=== PATIENT | male | born 1990 | race Hispanic/Latino ===

== ENCOUNTER 2020-09-20 13:50 | Emergency (ER) | payer OTHER ==
[~2020-09-20] VITALS: Ht 167.6 cm; Wt 95.3 kg
[2020-09-20 13:52] VITALS: BP 138/88
== END 2020-09-20 14:39 | disposition home or self-care (01) ==
LOC: EDH 13:50
DX: H00.032 Abscess of right lower eyelid (principal); H53.9 Unspecified visual disturbance
CPT/HCPCS: 99281